=== PATIENT | female | born 1960 | race Caucasian/White ===

== ENCOUNTER 2025-02-05 06:50 | Day surgery (SDC) | payer MEDICAID ==
[~2025-02-05 06:50] MED LIST: Propofol 200 MG/20 ML SDV ONE
[2025-02-05] MEDS ORDERED: fentaNYL 100 MCG/2 ML SDV IV ONE (06:51)
[2025-02-05] MEDS ORDERED: Midazolam 1 MG/ML 2 ML SDV IV ONE (06:51)
[2025-02-05] MEDS: Lactated Ringers 1,000 ML IV SCH (07:27)
[2025-02-05] MEDS ORDERED: fentaNYL 100 MCG/2 ML SDV ONE (08:21)
[2025-02-05] MEDS ORDERED: Midazolam 1 MG/ML 2 ML SDV ONE (08:21)
[2025-02-05] MEDS: fentaNYL 100 MCG/2 ML SDV IV ONE ×2 (09:02→09:03)
[2025-02-05] MEDS: Midazolam 1 MG/ML 2 ML SDV IV ONE ×2 (09:03→09:04)
== END 2025-02-05 10:34 | disposition home or self-care (01) ==
LOC: DL.ENDO 06:50
PROVIDERS: ATTEND Internal Medicine Gastroenterology
DX: C78.7 Secondary malignant neoplasm of liver and intrahepatic bile duct (principal); I10 Essential (primary) hypertension; F32.A Depression, unspecified; E03.9 Hypothyroidism, unspecified; E66.9 Obesity, unspecified; Z68.27 Body mass index [BMI] 27.0-27.9, adult
CPT/HCPCS: 43239; J2250; J3010; J7120

== ENCOUNTER 2025-02-09 06:30 | Day surgery (SDC) | payer MEDICAID ==
[~2025-02-09 06:30] MED LIST changes: +Dextrose 5%-0.45% NaCl 1,000 ML IV SCH
[2025-02-09] MEDS ORDERED: Lidocaine 2% 20 ML MDV NERVRT ONE (06:31)
[2025-02-09] MEDS ORDERED: Propofol 200 MG/20 ML SDV IV ONE (06:31)
[2025-02-09] MEDS ORDERED: Dextrose 5%-0.45% NaCl 1,000 ML IV ONE (06:31)
[2025-02-09] MEDS ORDERED: Lactated Ringers 1,000 ML IV ONE (06:31)
[2025-02-09] MEDS: Lactated Ringers 1,000 ML IV SCH (07:04)
== END 2025-02-09 09:05 | disposition home or self-care (01) ==
LOC: DL.ENDO 06:30
PROVIDERS: ATTEND Internal Medicine Gastroenterology
DX: D12.8 Benign neoplasm of rectum (principal); K57.30 Diverticulosis of large intestine without perforation or abscess without bleeding; K64.4 Residual hemorrhoidal skin tags; C78.7 Secondary malignant neoplasm of liver and intrahepatic bile duct; C80.1 Malignant (primary) neoplasm, unspecified; I10 Essential (primary) hypertension; E66.9 Obesity, unspecified; Z68.27 Body mass index [BMI] 27.0-27.9, adult
CPT/HCPCS: 82947; J2003; J2704; J7120

== ENCOUNTER 2025-07-28 10:49 | Emergency (ER) | payer MEDICAID, MEDICARE ==
[2025-07-28 11:29] LABS: PLATELET COUNT,PLT 77 10^3/uL (150-450); RED BLOOD CELL COUNT 3.88 10^6/uL (4.2-5.4)
[2025-07-28 11:40] LABS: WHITE BLOOD CELL COUNT,WBC 0.2 10^3/uL (5.0-10.0)
[2025-07-28 11:41] LABS: BASOPHILS PERCENT AUTO 0.0 % (0.0-1.0); EOSINOPHILS PERCENT AUTO 13.6 % (1.0-3.0); LYMPHOCYTES PERCENT AUTO 72.7 % (20.5-50.1); MONOCYTES PERCENT AUTO 0.0 % (2-8); NEUTROPHILS PERCENT AUTO 13.7 % (42.2-75.2)
[2025-07-28 11:50] LABS: ALANINE AMINOTRANSFERASE,ALT 104.0 U/L (14-59); ASPARTATE AMNIOTRANSFERASE,AST 101.0 U/L (15-37); BILIRUBIN TOTAL 2.9 mg/dL (0.2-1.0); BLOOD UREA NITROGEN,BUN 19.0 mg/dL (7-18); CARBON DIOXIDE,CO2 26.0 mmol/L (21-32); CHLORIDE,CL 101.0 mmol/L (98-107); CREATININE 0.98 mg/dL (0.55-1.02); EST CRCL DRUG DOSING (CG) 49.42 mL/min; GLUCOSE RANDOM 202.0 mg/dL (70-99); POTASSIUM,K 3.6 mmol/L (3.5-5.1); PROTEIN TOTAL,TP 6.0 g/dL (6.4-8.2); SODIUM,NA 138.0 mmol/L (136-145)
[2025-07-28 11:54] LABS: LACTIC ACID 1.5 mmol/L (0.4-2.0)
[2025-07-28 11:55] LABS: A/G RATIO 0.5; ESTIMATED GFR 64.0 mL/min (>=60)
[2025-07-28] MEDS ORDERED: Al and Mag Hydroxide/Diphenhydramine/Lidocaine/Simethicone 237 ML Bottle PO PRN (11:58)
[2025-07-28] MEDS: Iopamidol 612 MG/ML 100 ML Bottle IVPUSH ONE (12:13)
[2025-07-28] MEDS: Ketorolac 30 MG/ML SDV IVPUSH ONE (12:38)
[2025-07-28 13:25] LABS: BAND PERCENT MAN 4 %; EOSINOPHILS PERCENT MAN 14 % (1-3); LYMPHOCYTES PERCENT MAN 70 % (20-50); PLATELET COUNT ESTIMATE DECREASED; SEG NEUTROPHILS PERCENT MAN 12 % (42-75)
[2025-07-28 14:49] LABS: APPEARANCE,URINE CLEAR (CLEAR); GLUCOSE,URINE NEGATIVE (NEGATIVE); OCCULT BLOOD,URINE TRACE-INTACT (NEGATIVE)
[2025-07-28 15:11] LABS: EPITHELIAL CELLS,URINE FEW /HPF (NOT SEEN)
[2025-07-28] MEDS: fentaNYL 100 MCG/2 ML SDV IVPUSH ONE (15:57)
[2025-07-28 16:04] LABS: O2 DELIVERY DEVICE ROOM AIR
[2025-07-28 16:08] LABS: BASE EXCESS VENOUS 0.6 mmol/l ((-2)-(+3)); BICARBONATE,VENOUS 25 mmol/l (19-25); O2 SATURATION VENOUS 61.3 % (60-80); PCO2 VENOUS 38 mmHg (41-51); PH,VENOUS 7.42 (7.31-7.41); PO2 VENOUS 34 mmHg (35-42)
[2025-07-28 16:35] LABS: LACTIC ACID 2.4 mmol/L (0.4-2.0)
[2025-07-28] MEDS: LORazepam 2 MG/ML SDV IVPUSH PRN (16:44)
== END 2025-07-28 17:00 | disposition hospice, inpatient (51) ==
LOC: DL.ED 10:49
DX: A41.9 Sepsis, unspecified organism (principal); G93.40 Encephalopathy, unspecified; D70.9 Neutropenia, unspecified; R50.81 Fever presenting with conditions classified elsewhere; K92.1 Melena; K52.9 Noninfective gastroenteritis and colitis, unspecified; R18.8 Other ascites; I10 Essential (primary) hypertension; E11.9 Type 2 diabetes mellitus without complications; E66.9 Obesity, unspecified; E03.9 Hypothyroidism, unspecified; Z88.0 Allergy status to penicillin; Z79.82 Long term (current) use of aspirin; Z79.899 Other long term (current) drug therapy; Z79.890 Hormone replacement therapy; Z68.25 Body mass index [BMI] 25.0-25.9, adult
CPT/HCPCS: 71045; 74177; 80053; 81001; 82803; 82947; 83605; 83735; 85025; 87040; 87081; 87086; 87428-QW; 87430; 96361; 96365; 96366; 96367; 96375; 99285; 99285-25; A9270-GY; C1758; J1885; J2060; J2543; J3010; J3373; J7030; J7040; Q9967